=== PATIENT | female | born 1960 | race Two or more races ===

== ENCOUNTER 2018-12-16 09:30 | Outpatient (AMBR) | payer MEDICARE, MEDICAID, SELFPAY ==
--- NOTE | 2018-11-28 09:37 | PT.OIERPT ---
PT OP Initial Eval Patient Information Pediatric or Adult Patient: Adult PT >13 Visit Reasons: left knee pain Medical Diagnosis: L TKA Treatment Dx #1: Unsteadiness on feet Treatment Dx #2: muscle weakness Start of Care: 11/28/18 Date of Onset: 06/28/2018 Initial Assessment Subjective 58 y/o female who had L TKA last 06/28/18. As per patient she didn't have therapy after she went home. She went to her PCP from her last appt and her PCP referred her to PT. As per patient she had pain constantly and that she had a hard time getting out of the bed especially in the morning. She was usually alone during the day and that she had trouble walking inside the house. Upon entering the clinic, She doesn't use the walker and she has antalgic gait. Patient's goal is to be pain free as much as possible so that she can walk better. Objective (+) Febrile to touch L knee 90 deg flexion of L knee 0 deg extension of L knee ms strength on L quads and hamstrings 3+/5 grossly graded (+) antalgic gait Standing balance dynamic = F Pain on the L knee PS 10/ Assessment Patient will need PT due to patient has LOM of her L knee flexion, demonstrates ms weakness on LLE. Manual tx and thera ex, Gait training and balance training to improve balance and improve gait. Short Term and Custodial Goals 1. Increase ms strength on LLE to good to facilitate ambulation 2.To decrease pain on L LE to 1-2/10 3. To increase knee flexion to 120 deg 4. I with HEP Treatment Plan Thera ex Manual tx Cold pack as needed [facility]-ed Gait training Frequency and Duration 2x/wk x 6 weeks 0 Certification Dates: 11/28/2018 to 02/26/2019
--- NOTE | 2018-11-28 11:23 | PTNOTE_ITS ---
PT OP Initial Eval Patient Information Pediatric or Adult Patient: Adult PT >13 Visit Reasons: left knee pain Medical Diagnosis: L TKA Treatment Dx #1: Unsteadiness on feet Treatment Dx #2: muscle weakness Start of Care: 11/28/18 Date of Onset: 06/28/2018 Initial Assessment Subjective 58 y/o female who had L TKA last 06/28/18. As per patient she didn't have therapy after she went home. She went to her PCP from her last appt and her PCP referred her to PT. As per patient she had pain constantly and that she had a hard time getting out of the bed especially in the morning. She was usually alone during the day and that she had trouble walking inside the house. Upon entering the clinic, She doesn't use the walker and she has antalgic gait. Patient's goal is to be pain free as much as possible so that she can walk better. Objective (+) Febrile to touch L knee 90 deg flexion of L knee 0 deg extension of L knee ms strength on L quads and hamstrings 3+/5 grossly graded (+) antalgic gait Standing balance dynamic = F Pain on the L knee PS 10/ Assessment Patient will need PT due to patient has LOM of her L knee flexion, demonstrates ms weakness on LLE. Manual tx and thera ex, Gait training and balance training to improve balance and improve gait. Short Term and Group Home Goals 1. Increase ms strength on LLE to good to facilitate ambulation 2.To decrease pain on L LE to 1-2/10 3. To increase knee flexion to 120 deg 4. I with HEP Treatment Plan Thera ex Manual tx Cold pack as needed [facility]-ed Gait training Frequency and Duration 2x/wk x 6 weeks 0 Certification Dates: 11/28/2018 to 02/26/2019
--- NOTE | 2018-12-02 11:08 | PT.ODAYNRPT ---
PT Outpatient Daily Note Date of Service: December 02, 2018 OP Daily Note Pediatric or Adult Patient: Adult PT >13 Visit Reasons: left knee pain Outpatient Physical Therapy Treatment Date: 12/02/18 Subjective: Patient was complaining of pain on the L knee during ambulation. Objective: pls see FS Assessment: patient is apprehensive to do stretching of the L knee. Patient were educated with title search manager Sangeetha the benefits of stretching the knee towards flexion. Patient verbalized understanding and agreed to participate. Patient were able to do ROM with 2lbs AW on LLE. Sister is with the patient. Plan: to continue POC toward goals. Pain Present Currently: Yes Length of Time (minutes) of Treatment: 30 Minutes Office Procedures PT Procedures PT Date of Service: 11/28/18 OP PT Eval Mod Complex 30 minutes: Yes
--- NOTE | 2018-12-02 11:25 | PTNOTE_ITS ---
PT Outpatient Daily Note Date of Service: December 02, 2018 OP Daily Note Pediatric or Adult Patient: Adult PT >13 Visit Reasons: left knee pain Outpatient Physical Therapy Treatment Date: 12/02/18 Subjective: Patient was complaining of pain on the L knee during ambulation. Objective: pls see FS Assessment: patient is apprehensive to do stretching of the L knee. Patient were educated with eviction specialist Sangeetha the benefits of stretching the knee towards flexion. Patient verbalized understanding and agreed to participate. Patient were able to do ROM with 2lbs AW on LLE. Sister is with the patient. Plan: to continue POC toward goals. Pain Present Currently: Yes Length of Time (minutes) of Treatment: 30 Minutes Office Procedures PT Procedures PT Date of Service: 11/28/18 OP PT Eval Mod Complex 30 minutes: Yes
--- NOTE | 2018-12-05 12:09 | PT.ODAYNRPT ---
PT Outpatient Daily Note Date of Service: December 05, 2018 OP Daily Note Visit Reasons: left knee pain Outpatient Physical Therapy Treatment Date: 12/05/18 Subjective: Patient c/o 5/10 pain upon arrival. Objective: Please see FS Assessment: Upon arrival patients L knee was febrile to touch. CP was applied with thera ex. Patient c/o pain with movement. Patient was able to tolerate heel slides but was unable to go past 90 deg. She was able to to tolerate forward lunges but c/o 8/10 pain at the end of the exercise. Patient was able to tolerate scifit machine with no resistance and with a slow pace. She tolerated gentle passive stretching to the L knee in extension. Pain was decreased with rest. Patient was advised to to to apply CP at home 3x a day to decrease pain and inflammation. Plan: Continue POC towards goals. Pain Present Currently: Yes Length of Time (minutes) of Treatment: 30 Minutes Office Procedures PT Procedures PT Date of Service: 11/28/18 OP PT Eval Mod Complex 30 minutes: Yes PT Procedures PT Date of Service: 12/02/18 Therapeutic Exercise 30 minutes: Yes
--- NOTE | 2018-12-09 11:36 | PT.ODAYNRPT ---
PT Outpatient Daily Note Date of Service: December 09, 2018 OP Daily Note Visit Reasons: left knee pain Outpatient Physical Therapy Treatment Date: 12/09/18 Subjective: pt reported feeling increased in pain upon visit but tends to have more mobility of the knee. Objective: see flow sheet. Assessment: progressed exercises by adding thera band and ankle weight to work towards the goals in POC. as she ascending the step with the LLE she hip hikes and extends the knee. pt demonstrates weakness of the LLE but she can correct with cuing and demonstrations. during HS curls pt tends to compensate with hip extension to increase ROM of knee flexion. TCs to keep the hip down and only working the HS. Plan: continue POC per PT. Length of Time (minutes) of Treatment: 30 Minutes Office Procedures PT Procedures PT Date of Service: 11/28/18 OP PT Eval Mod Complex 30 minutes: Yes PT Procedures PT Date of Service: 12/05/18 Therapeutic Exercise 30 minutes: Yes PT Procedures PT Date of Service: 12/09/18 Therapeutic Exercise 30 minutes: Yes PT Procedures PT Date of Service: 12/02/18 Therapeutic Exercise 30 minutes: Yes
--- NOTE | 2018-12-12 10:08 | PT.ODAYNRPT ---
PT Outpatient Daily Note Date of Service: December 12, 2018 OP Daily Note Visit Reasons: left knee pain Outpatient Physical Therapy Treatment Date: 12/12/18 Subjective: pt reported a lot more increase in pain and soreness from last visit upon visit today. Objective: see flow sheet. Assessment: pt continues to compensate as she ascends the step and weight shifts to the L and hip hikes with knee extension. cued and demonstrated what she does and the correct way so pt is aware of what she needs to practice on. pt can flex the knee just slight under 90 degrees with no compensation but she compensates with hip extension than she can increase range. pt limited in knee extension during LAQs due to quad weakness. advised pt continue with ice pack and HEP. Plan: continue POC per PT. Length of Time (minutes) of Treatment: 30 Minutes Office Procedures PT Procedures PT Date of Service: 11/28/18 OP PT Eval Mod Complex 30 minutes: Yes PT Procedures PT Date of Service: 12/05/18 Therapeutic Exercise 30 minutes: Yes PT Procedures PT Date of Service: 12/09/18 Therapeutic Exercise 30 minutes: Yes PT Procedures PT Date of Service: 12/02/18 Therapeutic Exercise 30 minutes: Yes PT Procedures PT Date of Service: 12/12/18 Therapeutic Exercise 30 minutes: Yes
--- NOTE | 2018-12-16 10:07 | PT.ODAYNRPT ---
PT Outpatient Daily Note Date of Service: December 16, 2018 OP Daily Note Visit Reasons: left knee pain Outpatient Physical Therapy Treatment Date: 12/16/18 Subjective: pt doing well today but reports difficulty with stairs due to pain. Objective: see flow sheet. Assessment: after sci-fit pt completes ascending and descending the step but has more difficult with lateral step ups. pt tends to rotate the hips and trunk inward as she steps up onto the step to compensate. cued pt to keep the hips neutral position and focus on the LLE. during heels slides pt relies more on the RLE to flex the knees. isolating the RLE on heels slides would benefit pt next visit. Plan: continue POC per PT. Length of Time (minutes) of Treatment: 30 Minutes Office Procedures PT Procedures PT Date of Service: 11/28/18 OP PT Eval Mod Complex 30 minutes: Yes PT Procedures PT Date of Service: 12/05/18 Therapeutic Exercise 30 minutes: Yes PT Procedures PT Date of Service: 12/09/18 Therapeutic Exercise 30 minutes: Yes PT Procedures PT Date of Service: 12/02/18 Therapeutic Exercise 30 minutes: Yes PT Procedures PT Date of Service: 12/12/18 Therapeutic Exercise 30 minutes: Yes PT Procedures PT Date of Service: 12/16/18 Therapeutic Exercise 30 minutes: Yes
== END 2018-12-19 23:59 | disposition home or self-care (01) ==
PROVIDERS: PCP Family Medicine; Referring Provider Family Medicine; Visit Provider Nurse Practitioner Family
DX: M25.562 Pain in left knee (principal); R26.81 Unsteadiness on feet; M62.81 Muscle weakness (generalized); Z96.652 Presence of left artificial knee joint; I10 Essential (primary) hypertension
CPT/HCPCS: 97110; 97162

== ENCOUNTER 2019-01-13 10:30 | Outpatient (AMBR) | payer MEDICARE, MEDICAID, SELFPAY ==
--- NOTE | 2018-12-20 09:19 | PT.ODAYNRPT ---
PT Outpatient Daily Note Date of Service: December 20, 2018 OP Daily Note Visit Reasons: knee Outpatient Physical Therapy Treatment Date: 12/20/18 Subjective: pt came in c/o severe knee pain and could not sleep much. pt has not had that pain before and is concerned. Objective: see flow sheet. Assessment: after sci-fit pt started step ups but c/o knee pain and had difficulty completing the exercise. used TENS for a few mins while she performed SAQs. pt demonstrates fair quad activation but can not maintain LLE neutral position as it is ER. cued pt and educated pt about LLE placement. after fatigue she tends to activate the hip flexors. used thera bar for STM to the quads and pt would not sit still as she is very sensitive. noted a lot of muscle tension of the quads. advised pt to continue STM to the quads to decrease tension. Plan: continue POC per PT. Length of Time (minutes) of Treatment: 30 Minutes Office Procedures PT Procedures PT Date of Service: 12/20/18 Therapeutic Exercise 30 minutes: Yes
--- NOTE | 2018-12-23 09:54 | PT.ODAYNRPT ---
PT Outpatient Daily Note Date of Service: December 23, 2018 OP Daily Note Visit Reasons: knee Outpatient Physical Therapy Treatment Date: 12/23/18 Subjective: pt reported some bruising and from last visit due to STM to the quads. pt iced and it went away. pt was very sore and feels like it's still sore today. Objective: see flow sheet. Assessment: pt showed her knee and the bruising on the lateral side is clear but there was still some bruising to the medial side. started with TENS and cold pack in which pt tolerated all the time with no complaints. took it light today as pt was c/o soreness and pain causing it difficult to walk. pt did complete the time on the sci-fit with no issues. pt tends to ambulate with antalgic gait and compensates using the RLE more. Plan: continue POC per PT. Length of Time (minutes) of Treatment: 30 Minutes Office Procedures PT Procedures PT Date of Service: 12/20/18 Therapeutic Exercise 30 minutes: Yes PT Procedures PT Date of Service: 12/23/18 OP Electrical Stimul Unattended: Yes Therapeutic Exercise 15 minutes: Yes
--- NOTE | 2018-12-26 10:28 | PT.ODAYNRPT ---
PT Outpatient Daily Note Date of Service: December 26, 2018 OP Daily Note Visit Reasons: knee Outpatient Physical Therapy Treatment Date: 12/26/18 Subjective: pt reported feeling L knee sore upon visit. pt states she is having herself or her daughter use water bottle for STM on the qauds. Objective: see flow sheet. Assessment: palpated and observed the quads and still feel tensed but not as much as the other day. STM post ther ex and pt was able to tolerate a lot better this time due to less tension. the pressure was minimal. pt was asked to perform SAQs while on the estim. pt tends to rely more on the hip as she steps up with LLE. informed pt about her compensation of the hip and demonstrated the correct way and pt is aware. pt ambulates with knee extension and side lean to the R side. educated pt about her gait pattern. Plan: continue POC per PT. Length of Time (minutes) of Treatment: 30 Minutes Office Procedures PT Procedures PT Date of Service: 12/20/18 Therapeutic Exercise 30 minutes: Yes PT Procedures PT Date of Service: 12/23/18 OP Electrical Stimul Unattended: Yes Therapeutic Exercise 15 minutes: Yes PT Procedures PT Date of Service: 12/26/18 OP Electrical Stimul Unattended: Yes Therapeutic Exercise 15 minutes: Yes
--- NOTE | 2019-01-02 12:55 | PT.ODAYNRPT ---
PT Outpatient Daily Note Date of Service: January 02, 2019 OP Daily Note Visit Reasons: knee Outpatient Physical Therapy Treatment Date: 01/02/19 Subjective: pt reported follow up with MD yesterday and advised her to continue with PT. pt has not had follow up with surgeon due insurance issues as she is not sure on details. surgeon staff spoke with pt's daughter. advised to follow up with her surgeon. pt c/o swelling and pain of the knee. Objective: see flow sheet. Assessment: pt continues to ambulate with antalgic gait which then causes compensations of other joints. when pt ascends with the LLE she hyperextends of the knee. I educated pt about her error and explained how to correct with demonstration but she c/o of pain. observed her knee and it's still slight swelling and a little bruised. applied e-stim and cold pack. advised pt to continue ice pack. Plan: continue POC per PT. Length of Time (minutes) of Treatment: 30 Minutes Office Procedures PT Procedures PT Date of Service: 12/20/18 Therapeutic Exercise 30 minutes: Yes PT Procedures PT Date of Service: 12/23/18 OP Electrical Stimul Unattended: Yes Therapeutic Exercise 15 minutes: Yes PT Procedures PT Date of Service: 01/02/19 OP Electrical Stimul Unattended: Yes Therapeutic Exercise 15 minutes: Yes PT Procedures PT Date of Service: 12/26/18 OP Electrical Stimul Unattended: Yes Therapeutic Exercise 15 minutes: Yes
--- NOTE | 2019-01-09 10:53 | PT.ODAYNRPT ---
PT Outpatient Daily Note Date of Service: January 09, 2019 OP Daily Note Visit Reasons: knee Outpatient Physical Therapy Treatment Date: 01/09/19 Subjective: Patient c/o L inferior lateral and superior lateral knee. Objective: Please see FS Assessment: Patient was able to tolerate TENS unit for 10 minutes with thera Ex. Patient c/o 6/10 pain during SAQ and LAQ but was able to continue. Patient educated that it important to stretch L knee to get more knee flexion and patient verbalized understanding. Patient has 90 degrees knees flexion prior to knee flexion stretch. After 10rep with 10 sec holds patient had 100 degrees knee flexion. Patient stated that she has difficulty with stair climbing and patient was educated to ascend up the stairs using R leg as the leading foot and descend with L leg as the leading foot. Patient was able to demonstrate with 100% accuracy. Patient c/o of 8/10 pain after stair training and patient reminded to apply CP later today to decrease inflammation. Plan: Continue POC towards goals Pain Present Currently: Yes Length of Time (minutes) of Treatment: 30 Minutes Office Procedures PT Procedures PT Date of Service: 12/20/18 Therapeutic Exercise 30 minutes: Yes PT Procedures PT Date of Service: 12/23/18 OP Electrical Stimul Unattended: Yes Therapeutic Exercise 15 minutes: Yes PT Procedures PT Date of Service: 01/02/19 OP Electrical Stimul Unattended: Yes Therapeutic Exercise 15 minutes: Yes PT Procedures PT Date of Service: 12/26/18 OP Electrical Stimul Unattended: Yes Therapeutic Exercise 15 minutes: Yes
--- NOTE | 2019-01-13 11:13 | PT.ODS1RPT ---
PT OP Progress/Discharge Note Date of Service: January 13, 2019 Progress Note/DC Note Progress Note/Discharge Note: DC Note Patient Information Pediatric or Adult Patient: Adult PT >13 Visit Reasons: knee Medical Diagnosis: L TKA Treatment Dx #1: muscle weakness Service Continue Service or Discharge: Discharge Physical Therapy Outpatient Service Dates: From: / To:: 11/28/2018 to 01/13/2019 Discharge Date: 01/13/19 Certification Date Certification Dates: Status Subjective: 58 y/o female who had L tka last 06/28/2018 and was seen for therapy for 11 treatments as of today. Patient is planning to go to [place] this and will be there for 3 weeks. Patient is requesting to be dc today. Objective: (+) L knee still febrile to touch 100deg flexion on knee L knee flexion 0 deg extension on L knee extension (+) mild antalgic gait Standing balance F+ Pain on the L knee PS 06/28 Assessment: Patient will be dc from PT services as of this time per patient request. Patient were educated that if she comes back from [place] and will want to come back to therapy that she will need a referral from PCP. Plan: DC Treatment Provided This POC: Thera ex Goals Achieved: Knee flexion 0-100 deg Discharge Comment: dc per patient request. Office Procedures PT Procedures PT Date of Service: 12/20/18 Therapeutic Exercise 30 minutes: Yes PT Procedures PT Date of Service: 12/23/18 OP Electrical Stimul Unattended: Yes Therapeutic Exercise 15 minutes: Yes PT Procedures PT Date of Service: 01/02/19 OP Electrical Stimul Unattended: Yes Therapeutic Exercise 15 minutes: Yes PT Procedures PT Date of Service: 01/13/19 Therapeutic Exercise 15 minutes: Yes Manual Information Technology Director 15 minutes: Yes PT Procedures PT Date of Service: 12/26/18 OP Electrical Stimul Unattended: Yes Therapeutic Exercise 15 minutes: Yes PT Procedures PT Date of Service: 01/09/19 Therapeutic Exercise 30 minutes: Yes
--- NOTE | 2019-01-13 11:39 | PT.ODAYNRPT ---
PT Outpatient Daily Note Date of Service: January 13, 2019 OP Daily Note Visit Reasons: knee Subjective: pt reported having pain 8/10 upon visit. pt continues to have concerns about slow progress. pt states compliance with HEP. Objective: see flow sheet. Assessment: after bike followed PROM of knee flexion in which pt tolerated well with no complaints. pt was very quite with all reps of PROM. as pt steps up onto the step she tends to weight shift onto the RLE to compensate of pain and not weight beating on the LLE. pt continues to walk with antalgic gait pattern. Plan: continue POC per PT. Length of Time (minutes) of Treatment: 30 Minutes Office Procedures PT Procedures PT Date of Service: 12/20/18 Therapeutic Exercise 30 minutes: Yes PT Procedures PT Date of Service: 12/23/18 OP Electrical Stimul Unattended: Yes Therapeutic Exercise 15 minutes: Yes PT Procedures PT Date of Service: 01/02/19 OP Electrical Stimul Unattended: Yes Therapeutic Exercise 15 minutes: Yes PT Procedures PT Date of Service: 01/13/19 Therapeutic Exercise 15 minutes: Yes Manual Vinyl Flooring Installer 15 minutes: Yes PT Procedures PT Date of Service: 12/26/18 OP Electrical Stimul Unattended: Yes Therapeutic Exercise 15 minutes: Yes PT Procedures PT Date of Service: 01/09/19 Therapeutic Exercise 30 minutes: Yes
== END 2019-01-16 23:59 | disposition home or self-care (01) ==
PROVIDERS: PCP Family Medicine; Referring Provider Family Medicine; Visit Provider Orthopaedic Surgery
DX: Z47.1 Aftercare following joint replacement surgery (principal); R26.81 Unsteadiness on feet; M62.81 Muscle weakness (generalized); Z96.652 Presence of left artificial knee joint; I10 Essential (primary) hypertension
CPT/HCPCS: 97014; 97110; 97140; G0283